=== PATIENT | female | born 1995 | race Caucasian/White ===

== ENCOUNTER 2017-02-13 19:18 | Emergency (ER) ==
[2017-02-13 19:22] VITALS: BP 113/73; TEMP 97.9; BMI 27.1
[2017-02-13] MEDS ORDERED: AUGMENTIN 500-125 MG TAB PO STA (19:43)
[2017-02-13] MEDS ORDERED: TESSALON PERLES PO STA (19:43)
--- NOTE | 2017-02-13 19:46 | ED.PDOC ---
General ED Provider: Dr. MARCIN BORJA Chief Complaint: Cough Stated Complaint: Been coughing for 3-4 days, getting yellow mucous, no fever or chills. 21 weeks . Time Seen by Physician: 19:44 Mode of Arrival: Walk-In Information Source: Patient Nursing and Triage Documentation Reviewed and Agree: Yes Respiratory Complaint Exam - Respiratory Complaint/Exam Symptoms Are: Still present Timing: Constant Initial Severity: Mild Current Severity: Mild Location: Chest Character: Reports: Productive cough Aggravating: Reports: URI Alleviating: Reports: None Associated Signs and Symptoms: Denies: Rapid breathing, Dyspnea, Fever, Chills, Chest pain, Pleuritic chest pain, Wheezing, Hemoptysis, Dizziness, Calf pain, Calf swelling, Edema, URI, Nasal congestion, Hoarseness, Sinus discomfort, Vomiting, Sore throat, Weight loss, Decreased oral intake, Increased thirst, Increased appetite, Increased urination History of Healthcare-Acquired Pneumonia: No Related Surgical History: Reports: None Pulmonary Embolism Risk Factors: None Cardiac Risk Factors: Reports: None Pseudomonas Risk Factors: Reports: None Tuberculosis Risk Factors: Reports: None Status Asthmaticus Risk Factors: Reports: None Respiratory Distress: None Inadequate Respiratory Effort: No Dysphagia Present: No Stridor Present: No JVD Present: No Accessory Muscle Use: No Retractions: Not Present Diminished Breath Sounds: No Sinus Tenderness: None Differential Diagnoses: Bronchitis Review of Systems - Review Of Systems Constitutional: Reports: No symptoms Eyes: Reports: No symptoms Ears, Nose, Mouth, Throat: Reports: No symptoms Respiratory: Reports: Cough Cardiac: Reports: No symptoms GI: Reports: No symptoms : Reports: No symptoms Musculoskeletal: Reports: No symptoms Skin: Reports: No symptoms Neurological: Reports: No symptoms Endocrine: Reports: No symptoms Hematologic/Lymphatic: Reports: No symptoms All Other Systems: Reviewed and Negative Past Medical History - Past Medical History Previously Healthy: Yes Endocrine: Reports: None Cardiovascular: Reports: None Respiratory: Reports: None Hematological: Reports: None Gastrointestinal: Reports: Other (CHRONIC ABDOMINAL PAIN) Genitourinary: Reports: None Neuro/Psych: Reports: None Musculoskeletal: Reports: None Cancer: Reports: None Last Menstrual Period: over 21 weeks ago - Surgical History General Surgical History: Reports: None - Family History Family History: Reports: None - Social History Smoking Status: Current every day smoker Hx Substance Use: No Alcohol Screening: None - Immunizations Tetanus Shot up to Date: Yes Physical Exam - Physical Exam Appearance: Well-appearing, No pain distress, Well-nourished Eyes: TOM, EOMI, Conjunctiva clear ENT: Ears normal, Nose normal, Oropharynx normal Respiratory: Airway patent, Breath sounds clear, Breath sounds equal, Respirations nonlabored Cardiovascular: RRR, Pulses normal, No rub, No murmur GI/: Soft, Nontender, No masses, Bowel sounds normal, No Organomegaly Musculoskeletal: Normal strength, ROM intact, No edema, No calf tenderness Skin: Warm, Dry, Normal color Neurological: Sensation intact, Motor intact, Reflexes intact, Cranial nerves intact, Alert, Oriented Psychiatric: Affect appropriate, Mood appropriate Critical Care Note - Critical Care Note Total Time (mins): 0 Course - Course Orders, Labs, Meds: Orders Category Date Time Status Amoxicillin/Potassium Clav [Augmentin 500-125 mg Tab] MEDS 02/13/17 19:43 Stat 1 tab PO ONCE STA Benzonatate [Tessalon Perles] MEDS 02/13/17 19:43 Stat 100 mg PO ONCE STA Vital Signs: Temp Pulse Resp BP Pulse Ox 02/13/17 19:18 97.9 F 93 H 18 113/73 98 Departure - Departure Time of Disposition: 19:47 Disposition: HOME SELF-CARE Discharge Problem: URTI (acute upper respiratory infection) Instructions: Upper Respiratory Infection (ED) Condition: Stable Pt referred to PMD for follow-up: Yes Additional Instructions: Take medication with food. Please call your OBGYN AND INFORM ABOUT THE MEDICATIONS. Prescriptions: Amoxicillin/Potassium Clav [Augmentin 500-125 mg Tab] 1 tab PO Q12HR #20 tablet Benzonatate [Tessalon Perles] 200 mg PO TID #30 capsule Allergies/Adverse Reactions: Allergies No Known Allergies Allergy (Unverified 02/13/17 19:22) Home Medications: Ambulatory Orders Amoxicillin/Potassium Clav [Augmentin 500-125 mg Tab] 1 tab PO Q12HR #20 tablet 02/13/17 Benzonatate [Tessalon Perles] 200 mg PO TID #30 capsule 02/13/17 Disposition Discussed With: Patient
== END 2017-02-13 20:05 | disposition home or self-care (01) ==
LOC: ED 19:18
DX: J06.9 Acute upper respiratory infection, unspecified (principal); Z33.1 Pregnant state, incidental; F17.210 Nicotine dependence, cigarettes, uncomplicated
CPT/HCPCS: 99282

== ENCOUNTER 2018-02-27 10:19 | Outpatient (CLI) | END 2018-02-27 10:20 | disposition home or self-care (01) | LOC: CAR 10:19 | PROVIDERS: ATTEND Physician Assistant | DX: R00.9 Unspecified abnormalities of heart beat (principal) | CPT/HCPCS: 93005; 93010 ==

== ENCOUNTER 2018-05-18 20:44 | Emergency (ER) ==
[2018-05-18 20:52] VITALS: BP 122/81; TEMP 98.3; BMI 28.3
[2018-05-18] MEDS ORDERED: NORCO 7.5-325 PO STA (20:57)
[2018-05-18] MEDS ORDERED: AUGMENTIN 875-125 MG TAB PO STA (20:57)
--- NOTE | 2018-05-18 21:00 | ED.PDOC ---
General ED Provider: Dr. JOSE R MUJICA-ER Chief Complaint: Earache Stated Complaint: my ear hurts and yellow stuff is coming out Time Seen by Physician: 20:45 Mode of Arrival: Walk-In Information Source: Patient Exam Limitations: No limitations Primary Care Provider: KRISTOFER LAWSON Nursing and Triage Documentation Reviewed and Agree: Yes Does patient meet sepsis criteria?: No System Inflammatory Response Syndrome: Not Applicable Sepsis Protocol: For patient's 13 years and over: Temp is 96.8 and below OR 101 and greater Pulse >90 BPM Resp >20/minute Acutely Altered Mental Status Are patient's symptoms suggestive of a new infection, such as: -Pneumonia -Skin, Soft Tissue -Endocarditis -UTI -Bone, Joint Infection -Implantable Device -Acute Abdominal Infection -Wound Infection -Meningitis -Blood Stream Catheter Infection -Unknown EENT Complaint Exam - Ear Complaint/Exam Onset/Duration: today Symptoms Are: Still present Timing: Constant Initial Severity: Mild Current Severity: Mild Character: Reports: Dull pain, Aching pain, Throbbing pain Alleviating: Reports: None Associated Signs and Symptoms: Reports: Discharge, URI symptoms Ear Surgical History: None Vesicles to External Pinna: No Vesicles to Tragus: No Tympanic Membrane: Erythema, Perforation Differential Diagnoses: Perforated TM Review of Systems - Review Of Systems Constitutional: Reports: No symptoms Eyes: Reports: No symptoms Ears, Nose, Mouth, Throat: Reports: Ear discharge Respiratory: Reports: No symptoms Cardiac: Reports: No symptoms GI: Reports: No symptoms : Reports: No symptoms Musculoskeletal: Reports: No symptoms Skin: Reports: No symptoms Neurological: Reports: No symptoms Endocrine: Reports: No symptoms Hematologic/Lymphatic: Reports: No symptoms All Other Systems: Reviewed and Negative Past Medical History - Past Medical History Previously Healthy: Yes Endocrine: Reports: None Cardiovascular: Reports: None Respiratory: Reports: None Hematological: Reports: None Gastrointestinal: Reports: Other (CHRONIC ABDOMINAL PAIN) Genitourinary: Reports: None Neuro/Psych: Reports: None Musculoskeletal: Reports: None Cancer: Reports: None Last Menstrual Period: UNKNOWN, IS ON DEPO SHOTS - Surgical History General Surgical History: Reports: None - Family History Family History: Reports: None - Social History Smoking Status: Current every day smoker, Heavy tobacco smoker Hx Substance Use: No Alcohol Screening: Occasionally - Immunizations Tetanus Shot up to Date: Yes Physical Exam - Physical Exam Appearance: Well-appearing, No pain distress, Well-nourished Pain Distress: Moderate Eyes: TOM, EOMI, Conjunctiva clear ENT: Oropharynx normal, Erythema Neck: Supple Respiratory: Airway patent, Breath sounds clear, Breath sounds equal, Respirations nonlabored Cardiovascular: RRR, Pulses normal, No rub, No murmur GI/: Soft, Nontender, No masses, Bowel sounds normal, No Organomegaly Musculoskeletal: Normal strength Skin: Warm Neurological: Sensation intact, Motor intact, Reflexes intact, Cranial nerves intact, Alert, Oriented Psychiatric: Affect appropriate Critical Care Note - Critical Care Note Total Time (mins): 0 Course - Course Orders, Labs, Meds: Orders Category Date Time Status Amoxicillin/Potassium Clav [Augmentin 875-125 mg Tab] MEDS 05/18/18 20:57 Stat 1 tab PO ONCE STA Hydrocodone Bit/Acetaminophen [[place] 7.5-325] MEDS 05/18/18 20:57 Stat 1 tab PO ONCE STA Medications Generic Name Dose Route Start Last Admin Trade Name Freq PRN Reason Stop Dose Admin Hydrocodone Bitart/Acetaminophen 1 tab 05/18/18 20:57 [place] 7.5-325 PO 05/18/18 20:58 ONCE STA Amoxicillin/Clavulanate Potassium 1 tab 05/18/18 20:57 Augmentin 875-125 Mg Tab PO 05/18/18 20:58 ONCE STA Vital Signs: Temp Pulse Resp BP Pulse Ox 05/18/18 20:45 98.3 F 91 H 20 122/81 98 Departure - Departure Time of Disposition: 21:00 Disposition: DISCH/TSF TO A [facility] Discharge Problem: Tympanic membrane perforation Qualifiers: Laterality: left Qualified Code(s): H72.92 - Unspecified perforation of tympanic membrane, left ear Instructions: Ruptured Eardrum (ED), Ear Infection (ED) Condition: Good Pt referred to PMD for follow-up: No IPMP verified?: No Additional Instructions: augmentin 875mg bid x 7 days---floxin otic drops 5 drops into the ear tid x 7 days---norco 7.5mg q 4hrs prn pain #10----dry ear precautions---you will need to see your ent doctor in follow up Allergies/Adverse Reactions: Allergies No Known Allergies Allergy (Verified 05/18/18 20:52) Home Medications: Ambulatory Orders Albuterol Sulfate [Proair Hfa] 2 puff IH Q4H PRN 05/18/18 Disposition Discussed With: Patient
== END 2018-05-18 21:18 | disposition home or self-care (01) ==
LOC: ED 20:44
DX: H92.02 Otalgia, left ear (principal); H92.12 Otorrhea, left ear; J06.9 Acute upper respiratory infection, unspecified; H72.92 Unspecified perforation of tympanic membrane, left ear; Z72.0 Tobacco use
CPT/HCPCS: 99282

== ENCOUNTER 2018-06-05 11:39 | Outpatient (POV) | END 2018-06-05 17:00 | LOC: OUTPT 11:39 | PROVIDERS: ATTEND Otolaryngology | DX: H90.5 Unspecified sensorineural hearing loss (principal) | CPT/HCPCS: 92557; 92567 ==

== ENCOUNTER 2018-06-12 01:01 | Emergency (ER) ==
[2018-06-12 01:12] VITALS: BP 123/80; TEMP 99.6; BMI 28.4
[2018-06-12 01:39] LABS: URINE PREGNANCY TEST NEGATIVE (NEGATIVE)
--- NOTE | 2018-06-12 02:22 | ED.PDOC ---
General ED Provider: Dr. JOSE R MUJICA-ER Chief Complaint: Vaginal Bleeding Stated Complaint: i had some vaginal bleeding Time Seen by Physician: 01:05 Mode of Arrival: Walk-In Information Source: Patient Exam Limitations: No limitations Primary Care Provider: KRISTOFER LAWSON Nursing and Triage Documentation Reviewed and Agree: Yes Does patient meet sepsis criteria?: No System Inflammatory Response Syndrome: Not Applicable Sepsis Protocol: For patient's 13 years and over: Temp is 96.8 and below OR 101 and greater Pulse >90 BPM Resp >20/minute Acutely Altered Mental Status Are patient's symptoms suggestive of a new infection, such as: -Pneumonia -Skin, Soft Tissue -Endocarditis -UTI -Bone, Joint Infection -Implantable Device -Acute Abdominal Infection -Wound Infection -Meningitis -Blood Stream Catheter Infection -Unknown [employer] Complaint Exam - Vaginal Bleeding Complaint/Exam Onset/Duration: today Symptoms Are: Resolved Initial Severity: Mild Current Severity: Mild Character: Reports: Bright red Aggravating: Reports: None Alleviating: Reports: None Associated Signs and Symptoms: Denies: Dizziness, Lightheadedness, Pale, UTI symptoms, Abdominal pain, Cramping, Generalized pain Related History: Reports: Irregular menses : 2 Para: 1 Patient Rh Status: Unknown Related Surgical History: Reports: None Abdominal Findings: Present: None Adnexal Exam: Present: Normal Findings Differential Diagnoses: Vaginitis Review of Systems - Review Of Systems Constitutional: Reports: No symptoms Eyes: Reports: No symptoms Ears, Nose, Mouth, Throat: Reports: No symptoms Respiratory: Reports: No symptoms Cardiac: Reports: No symptoms GI: Reports: No symptoms : Reports: No symptoms Musculoskeletal: Reports: No symptoms Skin: Reports: No symptoms Neurological: Reports: No symptoms Endocrine: Reports: No symptoms Hematologic/Lymphatic: Reports: No symptoms All Other Systems: Reviewed and Negative Past Medical History - Past Medical History Previously Healthy: Yes Endocrine: Reports: None Cardiovascular: Reports: None Respiratory: Reports: None Hematological: Reports: None Gastrointestinal: Reports: Other (CHRONIC ABDOMINAL PAIN) Genitourinary: Reports: None Neuro/Psych: Reports: None Musculoskeletal: Reports: None Cancer: Reports: None Last Menstrual Period: IS ON DEPO SHOTS, ONLY HAS SPOTTING ONCE IN A WHILE - Surgical History General Surgical History: Reports: None - Family History Family History: Reports: None - Social History Smoking Status: Current every day smoker, Heavy tobacco smoker Hx Substance Use: No Alcohol Screening: Occasionally - Immunizations Tetanus Shot up to Date: Yes Physical Exam - Physical Exam Appearance: Well-appearing, No pain distress, Well-nourished Eyes: TOM ENT: Ears normal, Nose normal, Oropharynx normal Neck: Supple Respiratory: Airway patent, Breath sounds clear, Breath sounds equal, Respirations nonlabored Cardiovascular: RRR GI/: Soft, Nontender, No masses, Bowel sounds normal, No Organomegaly Musculoskeletal: Normal strength, ROM intact, No edema, No calf tenderness Skin: Warm, Dry, Normal color Neurological: Sensation intact Psychiatric: Affect appropriate, Mood appropriate Critical Care Note - Critical Care Note Total Time (mins): 0 Course - Course Orders, Labs, Meds: Lab Review 06/12/18 06/12/18 01:20 01:20 Urine Color Yellow Urine Clarity Cloudy Urine pH 6.0 Ur Specific [place] >=1.030 Urine Protein 2+ Urine Glucose (UA) Negative Urine Ketones Negative Urine Blood 3+ Urine Nitrite Negative Urine Bilirubin Negative Urine Urobilinogen 0.2 Ur Leukocyte Esterase 3+ Urine Microscopic RBC 30-50 Urine Microscopic WBC 50-100 Ur Squamous Epith Cells 5-10 Urine Bacteria 1+ Urine Test Negative Orders Category Date Time Status CHLAMYDIA/GC AMPLIFICATION Stat LAB 06/12/18 02:10 Received HIV RNA, REAL TIME PCR (GRAPH) Stat LAB 06/12/18 02:10 Received ROSI PREP Stat LAB 06/12/18 02:19 Ordered RPR [RAPID PLASMA REAGIN] Stat LAB 06/12/18 02:10 Received URINALYSIS C & S IF INDICATED Stat LAB 06/12/18 01:20 Completed URINE CULTURE Stat LAB 06/12/18 01:35 Received URINE Stat LAB 06/12/18 01:20 Completed WET PREP Stat LAB 06/12/18 02:19 Ordered Vital Signs: Temp Pulse Resp BP Pulse Ox 06/12/18 01:01 99.6 F 108 H 18 123/80 98 Departure - Departure Time of Disposition: 02:21 Disposition: HOME SELF-CARE Discharge Problem: Vaginitis Qualifiers: Chronicity: acute Qualified Code(s): N76.0 - Acute vaginitis Instructions: Vaginitis (ED) Condition: Good Pt referred to PMD for follow-up: Yes IPMP verified?: No Additional Instructions: cipro 500mg bid x 7 days , flagyl 250mg tid x 7 days--f/u with pcp regarding all cultures--- Allergies/Adverse Reactions: Allergies No Known Allergies Allergy (Verified 06/12/18 01:12) Home Medications: Ambulatory Orders Albuterol Sulfate [Proair Hfa] 2 puff IH Q4H PRN 05/18/18 Disposition Discussed With: Patient
== END 2018-06-12 02:46 | disposition home or self-care (01) ==
LOC: ED 01:01
DX: N76.0 Acute vaginitis (principal); F17.210 Nicotine dependence, cigarettes, uncomplicated
CPT/HCPCS: 36415; 81001; 81025; 86592; 87086; 87186; 87210; 87536; 87800; 99283

== ENCOUNTER 2018-07-18 14:53 | Emergency (ER) ==
[2018-07-18 15:10] VITALS: BP 103/73; TEMP 98.3; BMI 27.9
[2018-07-18] MEDS ORDERED: TORADOL IM STA (16:04)
--- NOTE | 2018-07-18 16:05 | ED.PDOC ---
General ED Provider: Dr. JOSE R JACOBO Chief Complaint: Cough Stated Complaint: Rt Ear ache. Onset X last several days. Severe pain last evening with onset of drainage from RT EAC Time Seen by Physician: 15:30 Mode of Arrival: Walk-In Information Source: Patient Exam Limitations: No limitations Primary Care Provider: KRISTOFER LAWSON Nursing and Triage Documentation Reviewed and Agree: Yes Does patient meet sepsis criteria?: No System Inflammatory Response Syndrome: Not Applicable Sepsis Protocol: For patient's 13 years and over: Temp is 96.8 and below OR 101 and greater Pulse >90 BPM Resp >20/minute Acutely Altered Mental Status Are patient's symptoms suggestive of a new infection, such as: -Pneumonia -Skin, Soft Tissue -Endocarditis -UTI -Bone, Joint Infection -Implantable Device -Acute Abdominal Infection -Wound Infection -Meningitis -Blood Stream Catheter Infection -Unknown EENT Complaint Exam - Ear Complaint/Exam Onset/Duration: 2-3 days Symptoms Are: Still present Timing: Constant Initial Severity: Moderate Current Severity: Severe Character: Reports: Dizzy, Aching pain Aggravating: Reports: Tugging on ear, Position Alleviating: Reports: OTC Meds Associated Signs and Symptoms: Reports: URI symptoms, Pain to external face. Denies: Ear trauma, Ear swelling, Discharge, Fever, Hearing loss, Bleeding, Sore throat, Headache, Foreign body sensation, Rash, Pain to external ear Related History: Reports: Similar Episode (several yrs ago lt side) Ear Surgical History: None Vesicles to External Pinna: No Vesicles to Tragus: No TMJ Tenderness: Right Mastoid Tenderness: Right Tragal Tenderness: Right External Canal: Edema, Erythema Material in Canal: Present: Discharge Tympanic Membrane: Erythema, Bulging Differential Diagnoses: Otitis Media Review of Systems - Review Of Systems Constitutional: Reports: Fever Eyes: Reports: No symptoms Ears, Nose, Mouth, Throat: Reports: Ear pain, Ear discharge Respiratory: Reports: Cough Cardiac: Reports: No symptoms GI: Reports: No symptoms : Reports: No symptoms Musculoskeletal: Reports: No symptoms Skin: Reports: No symptoms Neurological: Reports: No symptoms Endocrine: Reports: No symptoms Hematologic/Lymphatic: Reports: No symptoms All Other Systems: Reviewed and Negative Past Medical History - Past Medical History Previously Healthy: Yes Endocrine: Reports: None Cardiovascular: Reports: None Respiratory: Reports: None Hematological: Reports: None Gastrointestinal: Reports: Other (CHRONIC ABDOMINAL PAIN) Genitourinary: Reports: None Neuro/Psych: Reports: None Musculoskeletal: Reports: None Cancer: Reports: None Last Menstrual Period: depo shots - Surgical History General Surgical History: Reports: None - Family History Family History: Reports: None - Social History Smoking Status: Current every day smoker, Heavy tobacco smoker Hx Substance Use: No Alcohol Screening: None Physical Exam - Physical Exam Appearance: Ill-appearing Ill-appearing: Mild Pain Distress: Mild Eyes: TOM, EOMI, Conjunctiva clear ENT: Erythema Neck: Supple Respiratory: Airway patent, Breath sounds clear, Breath sounds equal, Respirations nonlabored Cardiovascular: RRR, Pulses normal, No rub, No murmur GI/: Soft, Nontender, No masses, Bowel sounds normal, No Organomegaly Musculoskeletal: Normal strength, ROM intact, No edema, No calf tenderness Skin: Warm, Dry, Normal color Neurological: Sensation intact, Motor intact, Reflexes intact, Cranial nerves intact, Alert, Oriented Psychiatric: Affect appropriate, Mood appropriate Critical Care Note - Critical Care Note Total Time (mins): 0 Course - Course Vital Signs: Temp Pulse Resp BP Pulse Ox 07/18/18 15:06 98.3 F 87 16 103/73 97 Departure - Departure Time of Disposition: 16:50 Disposition: HOME SELF-CARE Discharge Problem: Acute right otitis media, Bullous myringitis of right ear Condition: Good Pt referred to PMD for follow-up: Yes IPMP verified?: No Additional Instructions: Take meds as directed Analgesics for pain See PCP in next 5-6 days Prescriptions: Cefdinir [Omnicef] 300 mg PO Q12HR #20 capsule Ibuprofen 600 mg PO QID PRN #20 tablet PRN Reason: Ear Pain Allergies/Adverse Reactions: Allergies No Known Allergies Allergy (Verified 07/18/18 15:11) Home Medications: Ambulatory Orders Albuterol Sulfate [Proair Hfa] 2 puff IH Q4H PRN 05/18/18 Cefdinir [Omnicef] 300 mg PO Q12HR #20 capsule 07/18/18 Ibuprofen 600 mg PO QID PRN #20 tablet 07/18/18 Disposition Discussed With: Patient
[2018-07-18] MEDS ORDERED: LIDOCAINE HCL 1% SDV IM STA (16:57)
[2018-07-18] MEDS ORDERED: ROCEPHIN IM STA (16:57)
== END 2018-07-18 18:01 | disposition home or self-care (01) ==
LOC: ED 14:53
DX: H66.91 Otitis media, unspecified, right ear (principal); H73.011 Bullous myringitis, right ear; F17.210 Nicotine dependence, cigarettes, uncomplicated
CPT/HCPCS: 87502; 87651; 96372; 99283

== ENCOUNTER 2018-08-07 12:55 | Emergency (ER) ==
[2018-08-07 13:10] VITALS: BP 118/84; TEMP 98.1; BMI 27.7
[2018-08-07] MEDS ORDERED: LACTATED RINGERS 1,000 ML IV STA (13:42)
[2018-08-07] MEDS ORDERED: ZOFRAN 4 MG/2 ML IVP STA (13:42)
--- NOTE | 2018-08-07 13:42 | ED.PDOC ---
General ED Provider: Dr. JOSE R BARBOUR MD Chief Complaint: Nausea/Vomiting Stated Complaint: vomiting and diarrhea Time Seen by Physician: 13:25 Mode of Arrival: Walk-In Information Source: Patient Exam Limitations: No limitations Primary Care Provider: KRISTOFER LAWSON Nursing and Triage Documentation Reviewed and Agree: Yes Does patient meet sepsis criteria?: No If yes, has appropriate treatment been initiated?: Yes System Inflammatory Response Syndrome: Not Applicable Sepsis Protocol: For patient's 13 years and over: Temp is 96.8 and below OR 101 and greater Pulse >90 BPM Resp >20/minute Acutely Altered Mental Status Are patient's symptoms suggestive of a new infection, such as: -Pneumonia -Skin, Soft Tissue -Endocarditis -UTI -Bone, Joint Infection -Implantable Device -Acute Abdominal Infection -Wound Infection -Meningitis -Blood Stream Catheter Infection -Unknown Review of Systems - Review Of Systems Constitutional: Reports: No symptoms Eyes: Reports: No symptoms Ears, Nose, Mouth, Throat: Reports: No symptoms Respiratory: Reports: No symptoms Cardiac: Reports: No symptoms GI: Reports: No symptoms, Diarrhea, Nausea, Vomiting : Reports: No symptoms Musculoskeletal: Reports: No symptoms Skin: Reports: No symptoms Neurological: Reports: No symptoms Endocrine: Reports: No symptoms Hematologic/Lymphatic: Reports: No symptoms All Other Systems: Reviewed and Negative Past Medical History - Past Medical History Previously Healthy: Yes Endocrine: Reports: None Cardiovascular: Reports: None Respiratory: Reports: None Hematological: Reports: None Gastrointestinal: Reports: Other (CHRONIC ABDOMINAL PAIN) Genitourinary: Reports: None Neuro/Psych: Reports: None Musculoskeletal: Reports: None Cancer: Reports: None Last Menstrual Period: ON DEPO - Surgical History General Surgical History: Reports: None - Family History Family History: Reports: None - Social History Smoking Status: Current every day smoker, Heavy tobacco smoker Hx Substance Use: No Alcohol Screening: Occasionally Physical Exam - Physical Exam Appearance: Ill-appearing, Well-nourished, Obese Ill-appearing: Mild Pain Distress: None Eyes: TOM, EOMI, Conjunctiva clear ENT: Ears normal, Nose normal, Oropharynx normal Neck: Supple Respiratory: Airway patent Cardiovascular: RRR GI/: Soft, Nontender, No masses, Bowel sounds normal, No Organomegaly, Bowel sounds hypoactive Musculoskeletal: Normal strength, ROM intact, No edema, No calf tenderness Skin: Warm, Dry, Normal color Neurological: Sensation intact, Motor intact, Reflexes intact, Cranial nerves intact, Alert, Oriented Psychiatric: Affect appropriate, Mood appropriate Critical Care Note - Critical Care Note Total Time (mins): 0 Course - Course Hematology/Chemistry: 08/07/18 13:50 08/07/18 13:50 Orders, Labs, Meds: Lab Review 08/07/18 08/07/18 08/07/18 13:15 13:50 13:50 WBC 10.52 H RBC 4.71 Hgb 15.2 Hct 44.5 MCV 94.5 MCH 32.3 H MCHC 34.2 RDW Coeff of [place] 12.9 Plt Count 247 Immature Gran % (Auto) 0.4 Neut % (Auto) 92.8 Lymph % (Auto) 3.9 L [place] % (Auto) 2.6 Eos % (Auto) 0.1 Baso % (Auto) 0.2 Immature Gran # (Auto) 0.0 Neut # (Auto) 9.8 H Lymph # (Auto) 0.4 L [place] # (Auto) 0.3 L Eos # (Auto) 0.0 Baso # (Auto) 0.0 Sodium 138.8 Potassium 4.17 Chloride 105.3 Carbon Dioxide 25.2 Anion Gap 12.47 BUN 11.1 Creatinine 0.52 L Estimated GFR (MDRD) 147.00 BUN/Creatinine Ratio 21.34 Glucose 110.7 H Calcium 9.37 HCG, Quant Urine Color Yellow Urine Clarity Clear Urine pH 5.5 Ur Specific [place] >=1.030 Urine Protein Negative Urine Glucose (UA) Negative Urine Ketones Negative Urine Blood 1+ Urine Nitrite Negative Urine Bilirubin Negative Urine Urobilinogen 0.2 Ur Leukocyte Esterase Negative Urine Microscopic RBC 0-2 Ur Squamous Epith Cells 50-100 Urine Mucus 2+ 08/07/18 13:50 WBC RBC Hgb Hct MCV MCH MCHC RDW Coeff of [place] Plt Count Immature Gran % (Auto) Neut % (Auto) Lymph % (Auto) [place] % (Auto) Eos % (Auto) Baso % (Auto) Immature Gran # (Auto) Neut # (Auto) Lymph # (Auto) [place] # (Auto) Eos # (Auto) Baso # (Auto) Sodium Potassium Chloride Carbon Dioxide Anion Gap BUN Creatinine Estimated GFR (MDRD) BUN/Creatinine Ratio Glucose Calcium HCG, Quant < 2.390 Urine Color Urine Clarity Urine pH Ur Specific [place] Urine Protein Urine Glucose (UA) Urine Ketones Urine Blood Urine Nitrite Urine Bilirubin Urine Urobilinogen Ur Leukocyte Esterase Urine Microscopic RBC Ur Squamous Epith Cells Urine Mucus Orders Category Date Time Status IV [ED IV/MEDIPORT/POWERPORT] .ONCE EMERGENCY 08/07/18 13:40 Active BMP [BASIC METABOLIC PANEL] Stat LAB 08/07/18 13:50 Completed CBC W/ AUTO DIFF Stat LAB 08/07/18 13:50 Completed HCG,QUANTITATIVE Stat LAB 08/07/18 13:50 Completed URINALYSIS C & S IF INDICATED Stat LAB 08/07/18 13:15 Completed 0.9 % Sodium Chloride [Saline Flush] MEDS 08/07/18 13:40 Active 1 syr IVF PRN PRN Carisoprodol [Soma] MEDS 08/07/18 15:37 Discontinued 350 mg PO ONCE STA Methylprednisolone Sod Succ/Pf [Solu-Medrol 125 mg] MEDS 08/07/18 14:52 Discontinued 125 mg IVP ONCE STA Ondansetron HCl/Pf [Zofran 4 mg/2 ml] MEDS 08/07/18 13:42 Discontinued 4 mg IVP ONCE STA Ringers Lactated Solution [Lactated Ringers] 1,000 ml MEDS 08/07/18 13:42 Discontinued IV BOLUS Medications Generic Name Dose Route Start Last Admin Trade Name Freq PRN Reason Stop Dose Admin Sodium Chloride 1 syr 08/07/18 13:40 08/07/18 15:18 Saline Flush IVF 1 syr PRN PRN Administration To flush IV Discontinued Medications Generic Name Dose Route Start Last Admin Trade Name Freq PRN Reason Stop Dose Admin Carisoprodol 350 mg 08/07/18 15:37 08/07/18 15:50 Soma PO 08/07/18 15:38 350 mg ONCE STA Administration Lactated Ringer's 1,000 mls @ 1,000 mls/hr 08/07/18 13:42 08/07/18 14:03 Lactated Ringers IV 08/07/18 14:41 1,000 mls/hr BOLUS STA Administration Methylprednisolone Sodium Succinate 125 mg 08/07/18 14:52 08/07/18 15:16 Solu-Medrol 125 Mg IVP 08/07/18 14:53 125 mg ONCE STA Administration Ondansetron HCl 4 mg 08/07/18 13:42 08/07/18 14:04 Zofran 4 Mg/2 Ml IVP 08/07/18 13:43 4 mg ONCE STA Administration Vital Signs: Temp Pulse Resp BP Pulse Ox 08/07/18 12:58 98.1 F 98 H 20 118/84 97 Departure - Departure Time of Disposition: 16:00 Disposition: HOME SELF-CARE Discharge Problem: Gastroenteritis Instructions: Gastroenteritis (ED) Condition: Good Pt referred to PMD for follow-up: Yes IPMP verified?: No Allergies/Adverse Reactions: Allergies No Known Allergies Allergy (Verified 08/07/18 12:57) Home Medications: Ambulatory Orders Albuterol Sulfate [Proair Hfa] 2 puff IH Q4H PRN 05/18/18 Medroxyprogesterone Acetate [Depo-Provera] 150 mg IM DIRECTED 08/07/18 Transfer Form Completed: No Disposition Discussed With: Patient
[2018-08-07] MEDS ORDERED: SOLU-MEDROL 125 MG IVP STA (14:52)
[2018-08-07] MEDS ORDERED: SOMA PO STA (15:37)
== END 2018-08-07 17:35 | disposition home or self-care (01) ==
LOC: ED 12:55
DX: R11.2 Nausea with vomiting, unspecified (principal); R19.7 Diarrhea, unspecified; K52.9 Noninfective gastroenteritis and colitis, unspecified
CPT/HCPCS: 36415; 80048; 81001; 84702; 85025; 96374; 96375; 99283